=== PATIENT | female | born 1950 | race Caucasian/White ===

== ENCOUNTER → 2023-01-23 11:46 | Outpatient (CLI) | payer MEDICARE, OTHER, SELFPAY ==
[2023-01-24 16:01] LABS: Candida species Negative (Negative); Gardnerella vaginalis Negative (Negative); Trichomoas vaginalis Negative (Negative)
== END ==
PROVIDERS: PCP Nurse Practitioner; Visit Provider Physician Assistant Medical
DX: N94.819 Vulvodynia, unspecified (principal)
CPT/HCPCS: 87480; 87510; 87660

== ENCOUNTER 2023-05-24 09:00 | Outpatient (RCR) | payer MEDICARE, OTHER, SELFPAY ==
--- NOTE | 2023-03-21 17:00 | PT.OPPOC ---
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) Unspecified urinary incontinence (03/21/23) Visit Care Team Role Provider Type ANNAMARIA [place] Family Provider Non-Staff Primary Care Provider Specialty: Nursing Address: [facility] [address], [address], [place], [address] Email: Carmelita Mckeon PA-C Attending Provider Advanced Senior Net Software Developer Referring Provider Specialty: Medical Address: [address] [place] [address], [address], [address] Phone: Fax: Email: Plan Of Care PT-OP-T Assessment and Plan Start: 03/21/23 14:39 Freq: Status: Active Protocol: Document 03/21/23 15:00 [facility] (Rec: 03/22/23 09:22 [facility] [id number]) Physical Therapy Assessment Rehab Potential Rehabilitation Potential Good Evaluation Complexity Number of Personal Factors/Comorbidities 1-2 Number of Body Systems Impaired 3 Clinical Presentation at Evaluation Stable Impairments Impairments Activity Tolerance,Functional Activities,Functional Mobility ,Posture,Soft Tissue Mobility, Strength,Tone Other Impairments urinary incontinence, frequency urgency, nocturia Goals 3 Impairment Decreased endurance of the pelvic floor Short Term Goal (STG) Shara is able to sustain a pelvic floor contraction in supine x 10 seconds STG Duration 5 weeks Bridge Engineer Goal (LTG) Shara is able to sustain a pelvic floor contraction in standing x 5 seconds LTG Duration 8 weeks+ 2 Impairment Pelvic floor weakness Bridge Engineer Goal (LTG) Shara is able to increase her pelvic floor strength by 1 muscle grade with MMT for improved support of her pelvic organs LTG Duration 12 weeks 1 Impairment urinary incontinence that is constant throughout the day and also occurs at night Short Term Goal (STG) Shara is educated in pelvic floor strengthening exercises and a home program for core stabilization STG Duration 4 weeks Correction Goal (LTG) Shara reports a reduction in her urinary incontinence and is no longer noting constant leakage. She is able to wake up dry in the am LTG Duration 12 weeks Assessment Summary Assessment Shara is a 73 year old female referred to PT with urinary stress incontinence and vulvodynia. Shara reports that she has had chronic urinary incontinence since she was a child. She has also had chronic lung infections and has spent her life with asthma and chronic cough. Per pt report her symptoms worsened after her 2 child births. She underwent a bladder sling which did not help her. She notes she is doing better with the vulvodynia symptoms with the medication she was given and her rash is a bit better. She is trying to change her pads when she feels wet to decrease skin breakdown. Shara reports a constant leakage throughout the day made worse with change of position, urgency, being upright. She reports she will also leak during the night and can feel leakage when she turns over in bed. She is very congested when I had her lay down for exam and she is tight and guarded throughout the abdominal wall with poor mobility of her diaphragm. With pelvic floor evaluation Shara presents with atrophic vaginitis and decreased strength of the pelvic floor. She is able to facilitate a contraction of all gan of the levator ani but is weaker on her right side. Shara has very poor ability to sustain a pelvic floor contraction. Shara also reports chronic constipation. Constipation along with chronic cough and lung infections and a very sedentary life style can all contribute to downward pressure on her bladder with poor pelvic floor support. Shara is a good candidate for Pelvic floor PT working on diaphragmatic breathing, pelvic floor training, endurance training of the pelvic floor, core strengthening. Physical Therapy Plan Frequency and Duration Frequency of Treatment 1x/Week Duration of treatment (weeks) 8 Plan of Care Start Date 03/21/23 Plan of Care End Date 05/16/23 Therapeutic Interventions Therapeutic Interventions Home Exercise Program,Manual Therapy,Neuromuscular Re- education,Patient/Caregiver Education,Self-Care/Home Management,Soft Tissue Mobilization,Therapeutic Exercises Modalities Biofeedback Next Visit Focus/Plan Next Note Type Treatment Note Next Visit Plan begin emg biofeedback for pelvic floor endurance training next visit and work on diaphragmatic breathing and core strengthening Plan of Care Dates Plan of Care Start Date 03/21/23 Plan of Care End Date 05/16/23 Electronically Signed by: Roma Douglas, PT 03/22/23 1759 If you are in agreement with this Plan of Care, please return a signed and dated copy. I have reviewed this Plan of Care and certify that the skilled therapy services above are required to meet the patient?s needs. Physician Signature Date Printed Name and Credentials Clinical Instructor Signature Printed Name and Credentials
--- NOTE | 2023-03-21 17:00 | PT.OIE ---
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) Unspecified urinary incontinence (03/21/23) Past Medical History (Last Updated 01/27/23 @ 20:15 by Leatha Pedersen) Bronchiectasis (~2020) Depression (~1980) Diabetes mellitus (~2006) History of urinary incontinence Hypertension (~1989) Visit Care Team Role Provider Type ANNAMARIA [place] Family Provider Non-Staff Primary Care Provider Specialty: Nursing Address: [facility] [address], [address], [place], [address] Email: Carmelita Mckeon PA-C Attending Provider Advanced Jewel Setter Referring Provider Specialty: Medical Address: [address] [place] [address], [address], [place], [address] Phone: Fax: Email: Physical Therapy Initial Evaluation PT-OP-A Visit Information Start: 03/21/23 14:39 Freq: Status: Active Protocol: Document 03/21/23 15:02 [facility] (Rec: 03/21/23 15:28 [facility] [id number]) Out-Patient Physical Therapy Visit Information Visit Information Visit Type Initial Evaluation Visit Start Time 15:00 Visit Stop Time 15:45 Total Visit Minutes 45 Visit Number 1 Evaluation Information Evaluation Date 03/21/23 PT-OP-B Current Condition Start: 03/21/23 14:39 Freq: Status: Active Protocol: Document 03/21/23 15:02 [facility] (Rec: 03/21/23 15:28 [facility] [id number]) Current Condition History of Current Condition History of Current Condition pt reports history of chronic urinary leakage from the time she was a child and now it has progressed. She saw a urologist in [place] and had a bladder sling surgery. That did not help. She has a history of lung infections so has chronic ashtma and coughing. She has a history of 2 vaginal deliveries. She wears a large maxi pad and changes 2 times per day. It used to be she would leak with certain movements and coughing but now she leaks constants. The mornings are always better for her. In the afternoons she gets tired and she gets more leakage. She will sleeps approx 4 hours and then wakes up to void a couple of times per night. She wears a pad to bed. The pad is wet when she wakes up. Hx of bladder infections and kidney infections. She has not had a infection for a couple of years. She had her gallbladder removed years ago. PT-OP-C Subjective Start: 03/21/23 14:39 Freq: Status: Active Protocol: Document 03/21/23 15:00 [facility] (Rec: 03/22/23 09:24 [facility] [id number]) Patient Questionnaires Pelvic Pain and Urgency/Frequency Patient Symptom Scale Pelvic Pain Score 11 PT-OP-I Pelvic Floor Start: 03/21/23 14:39 Freq: Status: Active Protocol: Document 03/21/23 15:00 [facility] (Rec: 03/22/23 09:22 [facility] [id number]) Pelvic Floor Assessment Urine Pelvic Floor Surgery Yes: hx of bladder sling Urinary Symptoms Urge Sensation,Incomplete Emptying Other Urinary Symptoms constant leakage wetting through underwear, pt also complains of hx of rash with burning and itching and was diagnosed with vulvodynia Leakage Size Large Leakage Cause Cough,Exercise,Lifting,Sneeze, Urge Other Leakage Causes walking tot he toilet Leaks Per Day constant Voiding Frequency hourly Nocturia 3 Pads Used In 24 Hours 2 Urine Pad Type Maxi Pad Pelvic Clock Pelvic Clock 12-3 Atrophy Pelvic Clock 3-6 Atrophy Pelvic Clock 6-9 Atrophy Pelvic Clock 9-12 Atrophy Prolapse Uterine Prolapse Grade 1 Cystocele Grade 2 Contraction Ability Voluntary Contraction Weak Voluntary Relaxation Weak Manual Muscle Testing Left 2 Manual Muscle Testing Right 3 Manual Muscle Testing Anterior 2 Manual Muscle Testing Posterior 2 Muscle Endurance (Seconds) 2 PT-OP-J Posture/Palpation/Skin Start: 03/21/23 14:39 Freq: Status: Active Protocol: Document 03/21/23 15:00 [facility] (Rec: 03/22/23 09:22 [facility] [id number]) Posture Evaluation Comments Posture Comments forward head and rounded shoulder posture Palpation Assessment Location diaphraghm Palpation Findings Soft Tissue Tightness,Spasm, Muscle Guarding PT-OP-M Strength Start: 03/21/23 14:39 Freq: Status: Active Protocol: Document 03/21/23 15:00 [facility] (Rec: 03/22/23 09:22 [facility] [id number]) Trunk Strength Trunk Manual Muscle Testing Testing Position Supine Flexion 2+ Poor+ Core Stabilization poor core stabilization Comments difficulty with any abdominal recruitment PT-OP-Q Treatments Start: 03/21/23 14:39 Freq: Status: Active Protocol: Document 03/21/23 16:06 [facility] (Rec: 03/21/23 16:07 [facility] [id number]) Therapeutic Exercises Supine Exercises pelvic floor long holds with ball squeeze Reps/Minutes 10 reps holding 10 seconds relaxing x 10 seconds PT-OP-T Assessment and Plan Start: 03/21/23 14:39 Freq: Status: Active Protocol: Document 03/21/23 15:00 [facility] (Rec: 03/22/23 09:22 [facility] [id number]) Physical Therapy Assessment Rehab Potential Rehabilitation Potential Good Evaluation Complexity Number of Personal Factors/Comorbidities 1-2 Number of Body Systems Impaired 3 Clinical Presentation at Evaluation Stable Impairments Impairments Activity Tolerance,Functional Activities,Functional Mobility ,Posture,Soft Tissue Mobility, Strength,Tone Other Impairments urinary incontinence, frequency urgency, nocturia Goals 3 Impairment Decreased endurance of the pelvic floor Short Term Goal (STG) Shara is able to sustain a pelvic floor contraction in supine x 10 seconds STG Duration 5 weeks Fci Goal (LTG) Shara isd able to sustain a pelvic floor contraction in standin x 5 seconds LTG Duration 8 weeks+ 2 Impairment Pelvic floor weakness [facility]ci Goal (LTG) Shara is able to increase her pelvic floor strength by 1 muscle grade with MMT for improved support of her pelvic organs LTG Duration 12 weeks 1 Impairment urinary incontinence that is constant throughout the day and also occurs at night Short Term Goal (STG) Shara is educated in pelvic floor strengthening exercises and a home program for core stabilzation STG Duration 4 weeks [facility] Goal (LTG) Shara reports a reduction in her urinary incontinence and is no longer noting constant leakage. She is able to wake up dry in the am LTG Duration 12 weeks Assessment Summary Assessment Shara is a 73 year old female referred to PT with urinary stress incontinence and vulvodynia. Shara reports that she has had chronic urinary incontinence since she was a child. She has also had chronic lung infections and has spent her life with ashthma and chronic cough. Per pt report her symptoms worsened after her 2 child births. She underwent a bladder sling which did not help her. She notes she is doing better with the vulvodynia symptoms with the medication she was given and her rash is a bit better. She is trying to change her pads when she feels wet to decrease skin breakdown. Shara reports a constant leakage throughout the day made worse with change of position, urgency, being upright. She reports she will also leak during the night and can feel leakage when she turns over in bed. She is very congested when I had her lay down for exam and she is tight and guarded throughout the abdominal wall with poor mobility of her diaphraghm. With pelvic floor evaluation Shara presents with atrophic vaginitis and decreased strength of the pelvic floor. She is able to facilitate a contraction of all gan of the levator ani but is weaker on her right side. Shara has very poor ability to sustain a pelvic floor contraction. Shara also reports chronic constipation. Constipation along with chronic cough and lung infections and a very sedentary life style can all contribute to downward pressure on her bladder with poor pelvic floor support. Shara is a good candidate for Pelvic floor PT working on diaphragmatic breathing, pelvic floor training, endurance training of the pelvic floor, core strengthening. Physical Therapy Plan Frequency and Duration Frequency of Treatment 1x/Week Duration of treatment (weeks) 8 Plan of Care Start Date 03/21/23 Plan of Care End Date 05/16/23 Therapeutic Interventions Therapeutic Interventions Home Exercise Program,Manual Therapy,Neuromuscular Re- education,Patient/Caregiver Education,Self-Care/Home Management,Soft Tissue Mobilization,Therapeutic Exercises Modalities Biofeedback Next Visit Focus/Plan Next Note Type Treatment Note Next Visit Plan begin emg biofeedback for pelvic floor endurance training next visit and work on diaphragmatic breathing and core strengthening
--- NOTE | 2023-04-06 14:44 | PT.OTN ---
Current Diagnoses Other specified disorders of muscle (04/06/23) Pelvic muscle wasting (04/06/23) Vulvodynia, unspecified (04/06/23) Unspecified urinary incontinence (04/06/23) Physical Therapy Treatment Note PT-OP-A Visit Information Start: 03/21/23 14:39 Freq: Status: Active Protocol: Document 04/06/23 08:03 [facility] (Rec: 04/06/23 08:38 [facility] [id number]) Out-Patient Physical Therapy Visit Information Visit Information Visit Type Treatment Note Visit Start Time 08:03 Visit Stop Time 08:45 Total Visit Minutes 42 Visit Number 2 PT-OP-B Current Condition Start: 03/21/23 14:39 Freq: Status: Active Protocol: Document 03/21/23 15:02 [facility] (Rec: 03/21/23 15:28 [facility] [id number]) Current Condition History of Current Condition History of Current Condition pt reports history of chronic urinary leakage from the time she was a child and now it has progressed. She saw a urologist in [place] and had a bladder sling surgery. That did not help. She has a history of lung infections so has chronic ashtma and coughing. She has a history of 2 vaginal deliveries. She wears a large maxi pad and changes 2 times per day. It used to be she would leak with certain movements and coughing but now she leaks constants. The mornings are always better for her. In the afternoons she gets tired and she gets more leakage. She will sleeps approx 4 hours and then wakes up to void a couple of times per night. She wears a pad to bed. The pad is wet when she wakes up. Hx of bladder infections and kidney infections. She has not had a infection for a couple of years. She had her gallbladder removed years ago. PT-OP-C Subjective Start: 03/21/23 14:39 Freq: Status: Active Protocol: Document 04/06/23 08:03 [facility] (Rec: 04/06/23 08:38 [facility] [id number]) OP-PT Subjective Patient Comments Patient Comments Shara reports she has been working on her exercises and finding she is able to feel her pelvic floor with ball squeeze exercise Patient Reported Progress Same PT-OP-I Pelvic Floor Start: 03/21/23 14:39 Freq: Status: Active Protocol: Document 03/21/23 15:00 [facility] (Rec: 03/22/23 09:22 [facility] [id number]) Pelvic Floor Assessment Urine Pelvic Floor Surgery Yes: hx of bladder sling Urinary Symptoms Urge Sensation,Incomplete Emptying Other Urinary Symptoms constant leakage wetting through underwear, pt also complains of hx of rash with burning and itching and was diagnosed with vulvodynia Leakage Size Large Leakage Cause Cough,Exercise,Lifting,Sneeze, Urge Other Leakage Causes walking tot he toilet Leaks Per Day constant Voiding Frequency hourly Nocturia 3 Pads Used In 24 Hours 2 Urine Pad Type Maxi Pad Pelvic Clock Pelvic Clock 12-3 Atrophy Pelvic Clock 3-6 Atrophy Pelvic Clock 6-9 Atrophy Pelvic Clock 9-12 Atrophy Prolapse Uterine Prolapse Grade 1 Cystocele Grade 2 Contraction Ability Voluntary Contraction Weak Voluntary Relaxation Weak Manual Muscle Testing Left 2 Manual Muscle Testing Right 3 Manual Muscle Testing Anterior 2 Manual Muscle Testing Posterior 2 Muscle Endurance (Seconds) 2 PT-OP-J Posture/Palpation/Skin Start: 03/21/23 14:39 Freq: Status: Active Protocol: Document 03/21/23 15:00 [facility] (Rec: 03/22/23 09:22 [facility] [id number]) Posture Evaluation Comments Posture Comments forward head and rounded shoulder posture Palpation Assessment Location diaphraghm Palpation Findings Soft Tissue Tightness,Spasm, Muscle Guarding PT-OP-M Strength Start: 03/21/23 14:39 Freq: Status: Active Protocol: Document 03/21/23 15:00 [facility] (Rec: 03/22/23 09:22 [facility] [id number]) Trunk Strength Trunk Manual Muscle Testing Testing Position Supine Flexion 2+ Poor+ Core Stabilization poor core stabilization Comments difficulty with any abdominal recruitment PT-OP-Q Treatments Start: 03/21/23 14:39 Freq: Status: Active Protocol: Document 04/06/23 08:03 [facility] (Rec: 04/06/23 08:38 [facility] [id number]) Therapeutic Exercises Supine Exercises quick pelvic floor contractions Reps/Minutes x 10 reps diaohragmatic breathing Equipment Used x 5 min supine pelvic floor isolations Reps/Minutes x 10 reps holding 10 seconds and resting 10 seconds roll outs Reps/Minutes 2x 10 reps pelvic floor long holds with ball squeeze Reps/Minutes 10 reps holding 10 seconds relaxing x 10 seconds Comments 12.5 20.0uv max PT-OP-T Assessment and Plan Start: 03/21/23 14:39 Freq: Status: Active Protocol: Document 04/06/23 08:03 [facility] (Rec: 04/06/23 08:38 [facility] [id number]) Physical Therapy Assessment Goals 3 Impairment Decreased endurance of the pelvic floor Short Term Goal (STG) Shara is able to sustain a pelvic floor contraction in supine x 10 seconds STG Duration 5 weeks Residential Goal (LTG) Shara isd able to sustain a pelvic floor contraction in standin x 5 seconds LTG Duration 8 weeks+ 2 Impairment Pelvic floor weakness School Crossing Guard Supervisor Goal (LTG) Shara is able to increase her pelvic floor strength by 1 muscle grade with MMT for improved support of her pelvic organs LTG Duration 12 weeks 1 Impairment urinary incontinence that is constant throughout the day and also occurs at night Short Term Goal (STG) Shara is educated in pelvic floor strengthening exercises and a home program for core stabilzation STG Duration 4 weeks Residential Goal (LTG) Shara reports a reduction in her urinary incontinence and is no longer noting constant leakage. She is able to wake up dry in the am LTG Duration 12 weeks Assessment Summary Assessment 5.9 uv average on EMG biofeedback average is a 12.5 and max of 22 uv, Shara was started on EMG biofeedback with vaginal sensor for pelvic floor strengthening and she did really well today with her endurance holds. She was able to isolate her pelvic floor much better today and actually was able to tighten to the same intensity isolating her pelvic floor as using the ball . I added in diaphragmatic breathing and hip rollouts with theraband to her HEP. She tolerated this well Physical Therapy Plan Frequency and Duration Frequency of Treatment 1x/Week Duration of treatment (weeks) 8 Plan of Care Start Date 03/21/23 Plan of Care End Date 05/16/23 Therapeutic Interventions Therapeutic Interventions Home Exercise Program,Manual Therapy,Neuromuscular Re- education,Patient/Caregiver Education,Self-Care/Home Management,Soft Tissue Mobilization,Therapeutic Exercises Modalities Biofeedback Next Visit Focus/Plan Next Note Type Treatment Note Next Visit Plan continue EMG biofeedback for pelvic floor endurance training
--- NOTE | 2023-04-26 09:42 | PT.OTN ---
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) Unspecified urinary incontinence (04/26/23) Physical Therapy Treatment Note PT-OP-A Visit Information Start: 03/21/23 14:39 Freq: Status: Active Protocol: Document 04/26/23 08:56 [facility] (Rec: 04/26/23 09:42 [facility] [id number]) Out-Patient Physical Therapy Visit Information Visit Information Visit Type Treatment Note Visit Start Time 09:00 Visit Stop Time 09:40 Total Visit Minutes 40 Visit Number 3 PT-OP-B Current Condition Start: 03/21/23 14:39 Freq: Status: Active Protocol: Document 03/21/23 15:02 [facility] (Rec: 03/21/23 15:28 [facility] [id number]) Current Condition History of Current Condition History of Current Condition pt reports history of chronic urinary leakage from the time she was a child and now it has progressed. She saw a urologist in [place] and had a bladder sling surgery. That did not help. She has a history of lung infections so has chronic ashtma and coughing. She has a history of 2 vaginal deliveries. She wears a large maxi pad and changes 2 times per day. It used to be she would leak with certain movements and coughing but now she leaks constants. The mornings are always better for her. In the afternoons she gets tired and she gets more leakage. She will sleeps approx 4 hours and then wakes up to void a couple of times per night. She wears a pad to bed. The pad is wet when she wakes up. Hx of bladder infections and kidney infections. She has not had a infection for a couple of years. She had her gallbladder removed years ago. PT-OP-C Subjective Start: 03/21/23 14:39 Freq: Status: Active Protocol: Document 04/26/23 08:56 [facility] (Rec: 04/26/23 09:42 [facility] [id number]) OP-PT Subjective Patient Comments Patient Comments Shara reports she has been working on her exercises PT-OP-I Pelvic Floor Start: 03/21/23 14:39 Freq: Status: Active Protocol: Document 03/21/23 15:00 [facility] (Rec: 03/22/23 09:22 [facility] [id number]) Pelvic Floor Assessment Urine Pelvic Floor Surgery Yes: hx of bladder sling Urinary Symptoms Urge Sensation,Incomplete Emptying Other Urinary Symptoms constant leakage wetting through underwear, pt also complains of hx of rash with burning and itching and was diagnosed with vulvodynia Leakage Size Large Leakage Cause Cough,Exercise,Lifting,Sneeze, Urge Other Leakage Causes walking tot he toilet Leaks Per Day constant Voiding Frequency hourly Nocturia 3 Pads Used In 24 Hours 2 Urine Pad Type Maxi Pad Pelvic Clock Pelvic Clock 12-3 Atrophy Pelvic Clock 3-6 Atrophy Pelvic Clock 6-9 Atrophy Pelvic Clock 9-12 Atrophy Prolapse Uterine Prolapse Grade 1 Cystocele Grade 2 Contraction Ability Voluntary Contraction Weak Voluntary Relaxation Weak Manual Muscle Testing Left 2 Manual Muscle Testing Right 3 Manual Muscle Testing Anterior 2 Manual Muscle Testing Posterior 2 Muscle Endurance (Seconds) 2 PT-OP-J Posture/Palpation/Skin Start: 03/21/23 14:39 Freq: Status: Active Protocol: Document 03/21/23 15:00 [facility] (Rec: 03/22/23 09:22 [facility] [id number]) Posture Evaluation Comments Posture Comments forward head and rounded shoulder posture Palpation Assessment Location diaphraghm Palpation Findings Soft Tissue Tightness,Spasm, Muscle Guarding PT-OP-M Strength Start: 03/21/23 14:39 Freq: Status: Active Protocol: Document 03/21/23 15:00 [facility] (Rec: 03/22/23 09:22 [facility] [id number]) Trunk Strength Trunk Manual Muscle Testing Testing Position Supine Flexion 2+ Poor+ Core Stabilization poor core stabilization Comments difficulty with any abdominal recruitment PT-OP-Q Treatments Start: 03/21/23 14:39 Freq: Status: Active Protocol: Document 04/26/23 08:56 [facility] (Rec: 04/26/23 09:42 [facility] [id number]) Therapeutic Exercises Supine Exercises templates for coordination and eccentric control of the pelvic floor Reps/Minutes x 5 min bridges with ball squeeze Reps/Minutes x 10 reps resting tone of the pelvic floor Supine Exercise Name 5.0 uv Reps/Minutes 3 min assessment Comments this increased with exercises today quick pelvic floor contractions Reps/Minutes x 10 reps Comments 37 uv max diaohragmatic breathing Equipment Used x 5 min supine pelvic floor isolations Reps/Minutes x 10 reps holding 10 seconds and resting 10 seconds Comments average of 20 uv and max of 35 uv roll outs Reps/Minutes 2x 10 reps pelvic floor long holds with ball squeeze Reps/Minutes 10 reps holding 10 seconds relaxing x 10 seconds Comments 12.5 20.0uv max PT-OP-T Assessment and Plan Start: 03/21/23 14:39 Freq: Status: Active Protocol: Document 04/26/23 08:56 [facility] (Rec: 04/26/23 09:42 [facility] [id number]) Physical Therapy Assessment Goals 3 Impairment Decreased endurance of the pelvic floor Short Term Goal (STG) Shara is able to sustain a pelvic floor contraction in supine x 10 seconds STG Duration 5 weeks Prison Goal (LTG) Shara isd able to sustain a pelvic floor contraction in standin x 5 seconds LTG Duration 8 weeks+ 2 Impairment Pelvic floor weakness Prison Goal (LTG) Shara is able to increase her pelvic floor strength by 1 muscle grade with MMT for improved support of her pelvic organs LTG Duration 12 weeks 1 Impairment urinary incontinence that is constant throughout the day and also occurs at night Short Term Goal (STG) Shara is educated in pelvic floor strengthening exercises and a home program for core stabilzation STG Duration 4 weeks Fiber Optic Assembler Goal (LTG) Shara reports a reduction in her urinary incontinence and is no longer noting constant leakage. She is able to wake up dry in the am LTG Duration 12 weeks Assessment Summary Assessment improved average on EMG biofeedback today of 20 uv. Good increase in endurance and stregth Physical Therapy Plan Frequency and Duration Frequency of Treatment 1x/Week Duration of treatment (weeks) 8 Plan of Care Start Date 03/21/23 Plan of Care End Date 05/16/23 Next Visit Focus/Plan Next Note Type Treatment Note Next Visit Plan add in stretching exercises for the pelvic floor first prior to EMG biofeedback
--- NOTE | 2023-05-03 13:13 | PT.OTN ---
Current Diagnoses Other specified disorders of muscle (05/03/23) Pelvic muscle wasting (05/03/23) Vulvodynia, unspecified (05/03/23) Unspecified urinary incontinence (05/03/23) Physical Therapy Treatment Note PT-OP-A Visit Information Start: 03/21/23 14:39 Freq: Status: Active Protocol: Document 05/03/23 10:31 [facility] (Rec: 05/03/23 11:14 [facility] [id number]) Out-Patient Physical Therapy Visit Information Visit Information Visit Type Treatment Note Visit Start Time 10:30 Visit Stop Time 11:15 Total Visit Minutes 45 Visit Number 4 PT-OP-B Current Condition Start: 03/21/23 14:39 Freq: Status: Active Protocol: Document 03/21/23 15:02 [facility] (Rec: 03/21/23 15:28 [facility] [id number]) Current Condition History of Current Condition History of Current Condition pt reports history of chronic urinary leakage from the time she was a child and now it has progressed. She saw a urologist in [place] and had a bladder sling surgery. That did not help. She has a history of lung infections so has chronic ashtma and coughing. She has a history of 2 vaginal deliveries. She wears a large maxi pad and changes 2 times per day. It used to be she would leak with certain movements and coughing but now she leaks constants. The mornings are always better for her. In the afternoons she gets tired and she gets more leakage. She will sleeps approx 4 hours and then wakes up to void a couple of times per night. She wears a pad to bed. The pad is wet when she wakes up. Hx of bladder infections and kidney infections. She has not had a infection for a couple of years. She had her gallbladder removed years ago. PT-OP-C Subjective Start: 03/21/23 14:39 Freq: Status: Active Protocol: Document 05/03/23 10:31 [facility] (Rec: 05/03/23 11:14 [facility] [id number]) OP-PT Subjective Patient Comments Patient Comments Shara notes she has been doing her exercises, she notes sheis pretty good in the am but then as the day goes on she is out of energy and notes leaking PT-OP-I Pelvic Floor Start: 03/21/23 14:39 Freq: Status: Active Protocol: Document 03/21/23 15:00 [facility] (Rec: 03/22/23 09:22 [facility] [id number]) Pelvic Floor Assessment Urine Pelvic Floor Surgery Yes: hx of bladder sling Urinary Symptoms Urge Sensation,Incomplete Emptying Other Urinary Symptoms constant leakage wetting through underwear, pt also complains of hx of rash with burning and itching and was diagnosed with vulvodynia Leakage Size Large Leakage Cause Cough,Exercise,Lifting,Sneeze, Urge Other Leakage Causes walking tot he toilet Leaks Per Day constant Voiding Frequency hourly Nocturia 3 Pads Used In 24 Hours 2 Urine Pad Type Maxi Pad Pelvic Clock Pelvic Clock 12-3 Atrophy Pelvic Clock 3-6 Atrophy Pelvic Clock 6-9 Atrophy Pelvic Clock 9-12 Atrophy Prolapse Uterine Prolapse Grade 1 Cystocele Grade 2 Contraction Ability Voluntary Contraction Weak Voluntary Relaxation Weak Manual Muscle Testing Left 2 Manual Muscle Testing Right 3 Manual Muscle Testing Anterior 2 Manual Muscle Testing Posterior 2 Muscle Endurance (Seconds) 2 PT-OP-J Posture/Palpation/Skin Start: 03/21/23 14:39 Freq: Status: Active Protocol: Document 03/21/23 15:00 [facility] (Rec: 03/22/23 09:22 [facility] [id number]) Posture Evaluation Comments Posture Comments forward head and rounded shoulder posture Palpation Assessment Location diaphraghm Palpation Findings Soft Tissue Tightness,Spasm, Muscle Guarding PT-OP-M Strength Start: 03/21/23 14:39 Freq: Status: Active Protocol: Document 03/21/23 15:00 [facility] (Rec: 03/22/23 09:22 [facility] [id number]) Trunk Strength Trunk Manual Muscle Testing Testing Position Supine Flexion 2+ Poor+ Core Stabilization poor core stabilization Comments difficulty with any abdominal recruitment PT-OP-Q Treatments Start: 03/21/23 14:39 Freq: Status: Active Protocol: Document 05/03/23 10:31 [facility] (Rec: 05/03/23 11:14 [facility] [id number]) Therapeutic Exercises Supine Exercises piriformis stretch Reps/Minutes hold 1-2 min modified pelvic floor squat Reps/Minutes hold 1-2 min singe knee to chest stretch Reps/Minutes hold 1-2 min templates for coordination and eccentric control of the pelvic floor Reps/Minutes x 5 min bridges with ball squeeze Reps/Minutes x 10 reps resting tone of the pelvic floor Supine Exercise Name 5.0 uv Reps/Minutes 3 min assessment Comments this increased with exercises today quick pelvic floor contractions Reps/Minutes x 10 reps Comments 37 uv max diaohragmatic breathing Equipment Used x 5 min supine pelvic floor isolations Reps/Minutes x 10 reps holding 10 seconds and resting 10 seconds Comments avg 16 and max of 26 roll outs Reps/Minutes 2x 10 reps pelvic floor long holds with ball squeeze Reps/Minutes 10 reps holding 10 seconds relaxing x 10 seconds Comments 12.5 20.0uv max PT-OP-T Assessment and Plan Start: 03/21/23 14:39 Freq: Status: Active Protocol: Document 05/03/23 10:31 [facility] (Rec: 05/03/23 11:14 [facility] [id number]) Physical Therapy Assessment Goals 3 Impairment Decreased endurance of the pelvic floor Short Term Goal (STG) Shara is able to sustain a pelvic floor contraction in supine x 10 seconds STG Duration 5 weeks Escort Service Attendant Goal (LTG) Shara isd able to sustain a pelvic floor contraction in standin x 5 seconds LTG Duration 8 weeks+ 2 Impairment Pelvic floor weakness Escort Service Attendant Goal (LTG) Shara is able to increase her pelvic floor strength by 1 muscle grade with MMT for improved support of her pelvic organs LTG Duration 12 weeks 1 Impairment urinary incontinence that is constant throughout the day and also occurs at night Short Term Goal (STG) Shara is educated in pelvic floor strengthening exercises and a home program for core stabilzation STG Duration 4 weeks [facility] Goal (LTG) Shara reports a reduction in her urinary incontinence and is no longer noting constant leakage. She is able to wake up dry in the am LTG Duration 12 weeks Assessment Summary Assessment Shara is showing a improvement in strength, EMG biofeedback templates are difficult for her and endurance is still lacking. She notes she does pretty good in the am and then as day progresses she has increased coughing and fatigue . Due to her respiratory issues and chronic cough I am working with her on training her pelvic floor to contract with a exhale and prior to a cough Physical Therapy Plan Frequency and Duration Frequency of Treatment 1x/Week Duration of treatment (weeks) 8 Plan of Care Start Date 03/21/23 Plan of Care End Date 05/16/23 Therapeutic Interventions Therapeutic Interventions Home Exercise Program,Manual Therapy,Neuromuscular Re- education,Patient/Caregiver Education,Self-Care/Home Management,Soft Tissue Mobilization,Therapeutic Exercises Modalities Biofeedback Next Visit Focus/Plan Next Note Type Progress Note Next Visit Plan review the new stretching exercises for the pelvic floor first prior to EMG biofeedback
--- NOTE | 2023-05-11 09:01 | PT.OTN ---
Current Diagnoses Other specified disorders of muscle (05/11/23) Pelvic muscle wasting (05/11/23) Vulvodynia, unspecified (05/11/23) Unspecified urinary incontinence (05/11/23) Physical Therapy Treatment Note PT-OP-A Visit Information Start: 03/21/23 14:39 Freq: Status: Active Protocol: Document 05/11/23 08:13 [facility] (Rec: 05/11/23 09:01 [facility] [id number]) Out-Patient Physical Therapy Visit Information Visit Information Visit Type Treatment Note Visit Start Time 08:15 Visit Stop Time 09:00 Total Visit Minutes 45 Visit Number 5 PT-OP-B Current Condition Start: 03/21/23 14:39 Freq: Status: Active Protocol: Document 03/21/23 15:02 [facility] (Rec: 03/21/23 15:28 [facility] [id number]) Current Condition History of Current Condition History of Current Condition pt reports history of chronic urinary leakage from the time she was a child and now it has progressed. She saw a urologist in [place] and had a bladder sling surgery. That did not help. She has a history of lung infections so has chronic ashtma and coughing. She has a history of 2 vaginal deliveries. She wears a large maxi pad and changes 2 times per day. It used to be she would leak with certain movements and coughing but now she leaks constants. The mornings are always better for her. In the afternoons she gets tired and she gets more leakage. She will sleeps approx 4 hours and then wakes up to void a couple of times per night. She wears a pad to bed. The pad is wet when she wakes up. Hx of bladder infections and kidney infections. She has not had a infection for a couple of years. She had her gallbladder removed years ago. PT-OP-C Subjective Start: 03/21/23 14:39 Freq: Status: Active Protocol: Document 05/11/23 08:13 [facility] (Rec: 05/11/23 09:01 [facility] [id number]) OP-PT Subjective Patient Comments Patient Comments pt notes a little bit of change but not alot. PT-OP-I Pelvic Floor Start: 03/21/23 14:39 Freq: Status: Active Protocol: Document 03/21/23 15:00 [facility] (Rec: 03/22/23 09:22 [facility] [id number]) Pelvic Floor Assessment Urine Pelvic Floor Surgery Yes: hx of bladder sling Urinary Symptoms Urge Sensation,Incomplete Emptying Other Urinary Symptoms constant leakage wetting through underwear, pt also complains of hx of rash with burning and itching and was diagnosed with vulvodynia Leakage Size Large Leakage Cause Cough,Exercise,Lifting,Sneeze, Urge Other Leakage Causes walking tot he toilet Leaks Per Day constant Voiding Frequency hourly Nocturia 3 Pads Used In 24 Hours 2 Urine Pad Type Maxi Pad Pelvic Clock Pelvic Clock 12-3 Atrophy Pelvic Clock 3-6 Atrophy Pelvic Clock 6-9 Atrophy Pelvic Clock 9-12 Atrophy Prolapse Uterine Prolapse Grade 1 Cystocele Grade 2 Contraction Ability Voluntary Contraction Weak Voluntary Relaxation Weak Manual Muscle Testing Left 2 Manual Muscle Testing Right 3 Manual Muscle Testing Anterior 2 Manual Muscle Testing Posterior 2 Muscle Endurance (Seconds) 2 PT-OP-J Posture/Palpation/Skin Start: 03/21/23 14:39 Freq: Status: Active Protocol: Document 03/21/23 15:00 [facility] (Rec: 03/22/23 09:22 [facility] [id number]) Posture Evaluation Comments Posture Comments forward head and rounded shoulder posture Palpation Assessment Location diaphraghm Palpation Findings Soft Tissue Tightness,Spasm, Muscle Guarding PT-OP-M Strength Start: 03/21/23 14:39 Freq: Status: Active Protocol: Document 03/21/23 15:00 [facility] (Rec: 03/22/23 09:22 [facility] [id number]) Trunk Strength Trunk Manual Muscle Testing Testing Position Supine Flexion 2+ Poor+ Core Stabilization poor core stabilization Comments difficulty with any abdominal recruitment PT-OP-Q Treatments Start: 03/21/23 14:39 Freq: Status: Active Protocol: Document 05/11/23 08:13 [facility] (Rec: 05/11/23 09:01 [facility] [id number]) Therapeutic Exercises Supine Exercises piriformis stretch Reps/Minutes hold 1-2 min modified pelvic floor squat Reps/Minutes hold 1-2 min singe knee to chest stretch Reps/Minutes hold 1-2 min templates for coordination and eccentric control of the pelvic floor Reps/Minutes x 5 min bridges with ball squeeze Reps/Minutes x 10 reps resting tone of the pelvic floor Supine Exercise Name 3.9 uv Reps/Minutes 3 min assessment Comments this increased with exercises today quick pelvic floor contractions Reps/Minutes x 10 reps Comments 37 uv max diaohragmatic breathing Equipment Used x 5 min supine pelvic floor isolations Reps/Minutes x 10 reps holding 10 seconds and resting 10 seconds Comments average 15.5 and max of 30 uv roll outs Reps/Minutes 2x 10 reps pelvic floor long holds with ball squeeze Reps/Minutes 10 reps holding 10 seconds relaxing x 10 seconds Comments 12.5 20.0uv max PT-OP-T Assessment and Plan Start: 03/21/23 14:39 Freq: Status: Active Protocol: Document 05/11/23 08:13 [facility] (Rec: 05/11/23 09:01 [facility] [id number]) Physical Therapy Assessment Goals 3 Impairment Decreased endurance of the pelvic floor Short Term Goal (STG) Shara is able to sustain a pelvic floor contraction in supine x 10 seconds excellent progress STG Duration 5 weeks Wood Gouger Goal (LTG) Shara isd able to sustain a pelvic floor contraction in standin x 5 seconds Shara is able to hold 2 seconds in standing now LTG Duration 8 weeks+ 2 Impairment Pelvic floor weakness Wood Gouger Goal (LTG) Shara is able to increase her pelvic floor strength by 1 muscle grade with MMT for improved support of her pelvic organs good progress LTG Duration 12 weeks 1 Impairment urinary incontinence that is constant throughout the day and also occurs at night Short Term Goal (STG) Shara is educated in pelvic floor strengthening exercises and a home program for core stabilzation great progress towards goal and now we are progressingto more upright positions STG Duration 4 weeks Retirement Goal (LTG) Shara reports a reduction in her urinary incontinence and is no longer noting constant leakage. She is able to wake up dry in the am Shara reports she is seeing small changes in her symptoms now LTG Duration 12 weeks Progress Towards Goals Progress Towards Goals Progressing Toward Goals Assessment Summary Assessment Shara is showing improvement of both pelvic floor strength and endurance on EMG biofeedback. She is staring to notice small improvements in her symptoms. She would benefit from continued PT working towards the above stated goals Physical Therapy Plan Frequency and Duration Frequency of Treatment 1x/Week Duration of treatment (weeks) 6 Plan of Care Start Date 05/11/23 Plan of Care End Date 06/22/23 Therapeutic Interventions Therapeutic Interventions Home Exercise Program,Manual Therapy,Neuromuscular Re- education,Patient/Caregiver Education,Self-Care/Home Management,Soft Tissue Mobilization,Therapeutic Exercises Modalities Biofeedback Next Visit Focus/Plan Next Note Type Treatment Note Next Visit Plan review the new stretching exercises for the pelvic floor first prior to EMG biofeedback, begin standing squats
--- NOTE | 2023-05-11 09:02 | PT.OPPOC ---
Physical, Occupational & Speech Therapy At [facility] Current Diagnoses Other specified disorders of muscle (05/11/23) Pelvic muscle wasting (05/11/23) Vulvodynia, unspecified (05/11/23) Unspecified urinary incontinence (05/11/23) Visit Care Team Role Provider Type ANNAMARIA [place] Family Provider Non-Staff Primary Care Provider Specialty: Nursing Address: [facility] [address], [address], [place], [address] Email: Carmelita Mckeon PA-C Attending Provider Advanced Childcare Teacher Referring Provider Specialty: Medical Address: [address] , [address], [place], [address] Phone: Fax: Email: Plan Of Care PT-OP-T Assessment and Plan Start: 03/21/23 14:39 Freq: Status: Active Protocol: Document 05/11/23 08:13 [facility] (Rec: 05/11/23 09:01 [facility] [id number]) Physical Therapy Assessment Goals 3 Impairment Decreased endurance of the pelvic floor Short Term Goal (STG) Shara is able to sustain a pelvic floor contraction in supine x 10 seconds excellent progress STG Duration 5 weeks Truck Driver Heavy Goal (LTG) Shara is able to sustain a pelvic floor contraction in standing x 5 seconds Shara is able to hold 2 seconds in standing now LTG Duration 8 weeks+ 2 Impairment Pelvic floor weakness Truck Driver Heavy Goal (LTG) Shara is able to increase her pelvic floor strength by 1 muscle grade with MMT for improved support of her pelvic organs good progress LTG Duration 12 weeks 1 Impairment urinary incontinence that is constant throughout the day and also occurs at night Short Term Goal (STG) Shara is educated in pelvic floor strengthening exercises and a home program for core stabilization great progress towards goal and now we are progressing to more upright positions STG Duration 4 weeks Truck Driver Heavy Goal (LTG) Shara reports a reduction in her urinary incontinence and is no longer noting constant leakage. She is able to wake up dry in the am Shara reports she is seeing small changes in her symptoms now LTG Duration 12 weeks Progress Towards Goals Progress Towards Goals Progressing Toward Goals Assessment Summary Assessment Shara is showing improvement of both pelvic floor strength and endurance on EMG biofeedback. She is staring to notice small improvements in her symptoms. She would benefit from continued PT working towards the above stated goals Physical Therapy Plan Frequency and Duration Frequency of Treatment 1x/Week Duration of treatment (weeks) 6 Plan of Care Start Date 05/11/23 Plan of Care End Date 06/22/23 Therapeutic Interventions Therapeutic Interventions Home Exercise Program,Manual Therapy,Neuromuscular Re- education,Patient/Caregiver Education,Self-Care/Home Management,Soft Tissue Mobilization,Therapeutic Exercises Modalities Biofeedback Next Visit Focus/Plan Next Note Type Treatment Note Next Visit Plan review the new stretching exercises for the pelvic floor first prior to EMG biofeedback, begin standing squats Plan of Care Dates Plan of Care Start Date 05/11/23 Plan of Care End Date 06/22/23 Electronically Signed by: Roma Douglas, PT 05/11/23 0902 If you are in agreement with this Plan of Care, please return a signed and dated copy. I have reviewed this Plan of Care and certify that the skilled therapy services above are required to meet the patient?s needs. Physician Signature Date Printed Name and Credentials Clinical Instructor Signature Printed Name and Credentials
--- NOTE | 2023-05-16 09:49 | PT.OTN ---
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) Unspecified urinary incontinence (05/16/23) Physical Therapy Treatment Note PT-OP-A Visit Information Start: 03/21/23 14:39 Freq: Status: Active Protocol: Document 05/16/23 09:09 [facility] (Rec: 05/16/23 09:43 [facility] [id number]) Out-Patient Physical Therapy Visit Information Visit Information Visit Type Treatment Note Visit Start Time 09:05 PT-OP-B Current Condition Start: 03/21/23 14:39 Freq: Status: Active Protocol: Document 03/21/23 15:02 [facility] (Rec: 03/21/23 15:28 [facility] [id number]) Current Condition History of Current Condition History of Current Condition pt reports history of chronic urinary leakage from the time she was a child and now it has progressed. She saw a urologist in [place] and had a bladder sling surgery. That did not help. She has a history of lung infections so has chronic ashtma and coughing. She has a history of 2 vaginal deliveries. She wears a large maxi pad and changes 2 times per day. It used to be she would leak with certain movements and coughing but now she leaks constants. The mornings are always better for her. In the afternoons she gets tired and she gets more leakage. She will sleeps approx 4 hours and then wakes up to void a couple of times per night. She wears a pad to bed. The pad is wet when she wakes up. Hx of bladder infections and kidney infections. She has not had a infection for a couple of years. She had her gallbladder removed years ago. PT-OP-C Subjective Start: 03/21/23 14:39 Freq: Status: Active Protocol: Document 05/11/23 08:13 [facility] (Rec: 05/11/23 09:01 [facility] [id number]) OP-PT Subjective Patient Comments Patient Comments pt notes a little bit of change but not alot. PT-OP-I Pelvic Floor Start: 03/21/23 14:39 Freq: Status: Active Protocol: Document 03/21/23 15:00 [facility] (Rec: 03/22/23 09:22 [facility] [id number]) Pelvic Floor Assessment Urine Pelvic Floor Surgery Yes: hx of bladder sling Urinary Symptoms Urge Sensation,Incomplete Emptying Other Urinary Symptoms constant leakage wetting through underwear, pt also complains of hx of rash with burning and itching and was diagnosed with vulvodynia Leakage Size Large Leakage Cause Cough,Exercise,Lifting,Sneeze, Urge Other Leakage Causes walking tot he toilet Leaks Per Day constant Voiding Frequency hourly Nocturia 3 Pads Used In 24 Hours 2 Urine Pad Type Maxi Pad Pelvic Clock Pelvic Clock 12-3 Atrophy Pelvic Clock 3-6 Atrophy Pelvic Clock 6-9 Atrophy Pelvic Clock 9-12 Atrophy Prolapse Uterine Prolapse Grade 1 Cystocele Grade 2 Contraction Ability Voluntary Contraction Weak Voluntary Relaxation Weak Manual Muscle Testing Left 2 Manual Muscle Testing Right 3 Manual Muscle Testing Anterior 2 Manual Muscle Testing Posterior 2 Muscle Endurance (Seconds) 2 PT-OP-J Posture/Palpation/Skin Start: 03/21/23 14:39 Freq: Status: Active Protocol: Document 03/21/23 15:00 [facility] (Rec: 03/22/23 09:22 [facility] [id number]) Posture Evaluation Comments Posture Comments forward head and rounded shoulder posture Palpation Assessment Location diaphraghm Palpation Findings Soft Tissue Tightness,Spasm, Muscle Guarding PT-OP-M Strength Start: 03/21/23 14:39 Freq: Status: Active Protocol: Document 03/21/23 15:00 [facility] (Rec: 03/22/23 09:22 [facility] [id number]) Trunk Strength Trunk Manual Muscle Testing Testing Position Supine Flexion 2+ Poor+ Core Stabilization poor core stabilization Comments difficulty with any abdominal recruitment PT-OP-Q Treatments Start: 03/21/23 14:39 Freq: Status: Active Protocol: Document 05/16/23 09:09 [facility] (Rec: 05/16/23 09:43 [facility] [id number]) Therapeutic Exercises Supine Exercises piriformis stretch Reps/Minutes hold 1-2 min modified pelvic floor squat Reps/Minutes hold 1-2 min singe knee to chest stretch Reps/Minutes hold 1-2 min templates for coordination and eccentric control of the pelvic floor Reps/Minutes x 5 min bridges with ball squeeze Supine Exercise Name without ball today Reps/Minutes 10 reps quick pelvic floor contractions Reps/Minutes x 15 reps Comments 34.6 uv max supine pelvic floor isolations Reps/Minutes x 10 sec hold time Comments averag 19 with max of 48.5 uv pelvic floor long holds with ball squeeze Supine Exercise Name hold on this exercise after today s pt is doing better wihtout it Reps/Minutes 10 reps holding 10 seconds relaxing x 10 seconds PT-OP-T Assessment and Plan Start: 03/21/23 14:39 Freq: Status: Active Protocol: Document 05/16/23 09:09 [facility] (Rec: 05/16/23 09:43 [facility] [id number]) Physical Therapy Assessment Assessment Summary Assessment Shara is able to better isolate her pelvic floor now, endurance is still a challenge . I DC the ball squeezes as her numbers on EMG biofeedback are better without the ball now. We discussed bracing with her pelvic floor today prior to rolling over in bed as this is one of the ways she leaks during the night. OF course this is only when she is aware of rolling. Shara has 1 visit left in PT to review all established exercises Physical Therapy Plan Frequency and Duration Frequency of Treatment 1x/Week Duration of treatment (weeks) 6 Plan of Care Start Date 05/11/23 Plan of Care End Date 06/22/23 Therapeutic Interventions Therapeutic Interventions Home Exercise Program,Manual Therapy,Neuromuscular Re- education,Patient/Caregiver Education,Self-Care/Home Management,Soft Tissue Mobilization,Therapeutic Exercises Modalities Biofeedback Next Visit Focus/Plan Next Note Type Treatment Note Next Visit Plan review all established exercises next visit as this is her last scheduled PT visit
--- NOTE | 2023-05-25 16:05 | PT.OTN ---
Current Diagnoses Other specified disorders of muscle (05/24/23) Pelvic muscle wasting (05/24/23) Vulvodynia, unspecified (05/24/23) Unspecified urinary incontinence (05/24/23) Physical Therapy Treatment Note PT-OP-A Visit Information Start: 03/21/23 14:39 Freq: Status: Active Protocol: Document 05/24/23 09:09 [facility] (Rec: 05/24/23 09:44 [facility] [id number]) Out-Patient Physical Therapy Visit Information Visit Information Visit Type Treatment Note Visit Start Time 09:09 Visit Stop Time 09:40 Total Visit Minutes 35 Visit Number 7 PT-OP-B Current Condition Start: 03/21/23 14:39 Freq: Status: Active Protocol: Document 03/21/23 15:02 [facility] (Rec: 03/21/23 15:28 [facility] [id number]) Current Condition History of Current Condition History of Current Condition pt reports history of chronic urinary leakage from the time she was a child and now it has progressed. She saw a urologist in [place] and had a bladder sling surgery. That did not help. She has a history of lung infections so has chronic ashtma and coughing. She has a history of 2 vaginal deliveries. She wears a large maxi pad and changes 2 times per day. It used to be she would leak with certain movements and coughing but now she leaks constants. The mornings are always better for her. In the afternoons she gets tired and she gets more leakage. She will sleeps approx 4 hours and then wakes up to void a couple of times per night. She wears a pad to bed. The pad is wet when she wakes up. Hx of bladder infections and kidney infections. She has not had a infection for a couple of years. She had her gallbladder removed years ago. PT-OP-C Subjective Start: 03/21/23 14:39 Freq: Status: Active Protocol: Document 05/24/23 09:09 [facility] (Rec: 05/25/23 15:09 [facility] [id number]) OP-PT Subjective Patient Comments Patient Comments Shara notes she can feel small improvements, she feels independent with her HEP and will continue her exercises independently Patient Reported Progress Improving PT-OP-I Pelvic Floor Start: 03/21/23 14:39 Freq: Status: Active Protocol: Document 03/21/23 15:00 [facility] (Rec: 03/22/23 09:22 [facility] [id number]) Pelvic Floor Assessment Urine Pelvic Floor Surgery Yes: hx of bladder sling Urinary Symptoms Urge Sensation,Incomplete Emptying Other Urinary Symptoms constant leakage wetting through underwear, pt also complains of hx of rash with burning and itching and was diagnosed with vulvodynia Leakage Size Large Leakage Cause Cough,Exercise,Lifting,Sneeze, Urge Other Leakage Causes walking tot he toilet Leaks Per Day constant Voiding Frequency hourly Nocturia 3 Pads Used In 24 Hours 2 Urine Pad Type Maxi Pad Pelvic Clock Pelvic Clock 12-3 Atrophy Pelvic Clock 3-6 Atrophy Pelvic Clock 6-9 Atrophy Pelvic Clock 9-12 Atrophy Prolapse Uterine Prolapse Grade 1 Cystocele Grade 2 Contraction Ability Voluntary Contraction Weak Voluntary Relaxation Weak Manual Muscle Testing Left 2 Manual Muscle Testing Right 3 Manual Muscle Testing Anterior 2 Manual Muscle Testing Posterior 2 Muscle Endurance (Seconds) 2 PT-OP-J Posture/Palpation/Skin Start: 03/21/23 14:39 Freq: Status: Active Protocol: Document 03/21/23 15:00 [facility] (Rec: 03/22/23 09:22 [facility] [id number]) Posture Evaluation Comments Posture Comments forward head and rounded shoulder posture Palpation Assessment Location diaphraghm Palpation Findings Soft Tissue Tightness,Spasm, Muscle Guarding PT-OP-M Strength Start: 03/21/23 14:39 Freq: Status: Active Protocol: Document 03/21/23 15:00 [facility] (Rec: 03/22/23 09:22 [facility] [id number]) Trunk Strength Trunk Manual Muscle Testing Testing Position Supine Flexion 2+ Poor+ Core Stabilization poor core stabilization Comments difficulty with any abdominal recruitment PT-OP-Q Treatments Start: 03/21/23 14:39 Freq: Status: Active Protocol: Document 05/24/23 09:09 [facility] (Rec: 05/24/23 09:44 [facility] [id number]) Therapeutic Exercises Supine Exercises piriformis stretch Reps/Minutes hold 1-2 min modified pelvic floor squat Reps/Minutes hold 1-2 min singe knee to chest stretch Reps/Minutes hold 1-2 min templates for coordination and eccentric control of the pelvic floor Reps/Minutes x 8 min bridges with ball squeeze Supine Exercise Name without ball today Reps/Minutes 10 reps resting tone of the pelvic floor Supine Exercise Name 1.7 uv resting tone quick pelvic floor contractions Reps/Minutes x 15 reps Comments 42 uv max supine pelvic floor isolations Comments average of 17 uv 36 uv max roll outs Reps/Minutes 2x 10 reps PT-OP-T Assessment and Plan Start: 03/21/23 14:39 Freq: Status: Active Protocol: Document 05/24/23 09:09 [facility] (Rec: 05/24/23 09:44 [facility] [id number]) Physical Therapy Assessment Goals 3 Impairment Decreased endurance of the pelvic floor Short Term Goal (STG) Shara is able to sustain a pelvic floor contraction in supine x 10 seconds excellent progress STG Duration 5 weeks Fpc Goal (LTG) Shara isd able to sustain a pelvic floor contraction in standin x 5 seconds Shara is able to hold 2 seconds in standing now LTG Duration 8 weeks+ 2 Impairment Pelvic floor weakness Manager Testing Goal (LTG) Shara is able to increase her pelvic floor strength by 1 muscle grade with MMT for improved support of her pelvic organs good progress LTG Duration 12 weeks 1 Impairment urinary incontinence that is constant throughout the day and also occurs at night Short Term Goal (STG) Shara is educated in pelvic floor strengthening exercises and a home program for core stabilization great progress towards goal and now we are progressing to more upright positions STG Duration 4 weeks Fpc Goal (LTG) Shara reports a reduction in her urinary incontinence and is no longer noting constant leakage. She is able to wake up dry in the am Shara reports she is seeing small changes in her symptoms now LTG Duration 12 weeks Assessment Summary Assessment Shara notes small improvements with her symptoms and decreased pad use. She still is experiencing leakage and will continue to work on her home program. At this time Shara will be discharged to a [facility] Physical Therapy Plan Discharge Physical Therapy Discharge Reasons No Longer Attending PT Discharge Comments pt has reached the end of her PT visits
== END 2023-06-02 07:40 | disposition home or self-care (01) ==
LOC: PHYS 09:00
PROVIDERS: Family Provider Nurse Practitioner; PCP Nurse Practitioner; Referring Provider Physician Assistant Medical; Visit Provider Physician Assistant Medical
DX: R32 Unspecified urinary incontinence (principal); N94.819 Vulvodynia, unspecified; M62.89 Other specified disorders of muscle; N81.84 Pelvic muscle wasting
CPT/HCPCS: 97110; 97161